=== PATIENT | female | born 1970 | race Two or more races ===

== ENCOUNTER 2017-07-13 09:06 | Emergency (ER) | payer MEDICARE, OTHER ==
[~2017-07-13] VITALS: Ht 160 cm; Wt 70.3 kg
[2017-07-13] MEDS ORDERED: Bactrim DS (160mg/800mg) tab ORAL ONE (09:45)
[2017-07-13 09:59] VITALS: BP 129/83
--- NOTE | 2017-07-13 10:51 | Emergency Room Report ---
History of Present Illness General Chief Complaint: Sore Throat Source: Patient Present Illness HPI Patient presents with significant other with sore throat and also R foot pain. Sore throat for few days. Minimal cough. Feverish, not documented. Pain with swallowing but able to drink fluids. No NVD. She's had a sore on her R lower leg and now has swelling of her foot and redness of the skin dorsally. She had bunion surgery many years ago. She states the wound on her lower tibial area is improving. No calf tenderness. No dysuria. States not . Allergies: Coded Allergies: ACETAMINOPHEN (Verified Allergy, Unknown, 07/13/17) Patient History Past Medical History: see triage record Social History: Reports: smoking Social History Narrative lives at hotel with sig other Last Menstrual Period: 07/02/17 Now: No Reviewed Nursing Documentation: PMH: Agreed, PSxH: Agreed Nursing Documentation-PMH Hx Hypertension: Yes Review of Systems All Other Systems: negative except mentioned in HPI Physical Exam Vital Signs Date Time Temp Pulse Resp B/P (MAP) Pulse Ox O2 Delivery O2 Flow Rate FiO2 07/13/17 09:27 98.8 82 18 129/83 97 Room Air Sp02 EP Interpretation: reviewed, normal General Appearance: well appearing, no apparent distress, GCS 15, other - sleepy Head: normocephalic Eyes: bilateral eye PERRL, bilateral eye Scleral Injection ENT: moist mucus membranes, pharyngeal erythema Neck: supple Respiratory: lungs clear, normal breath sounds Cardiovascular #1: regular rate, rhythm Cardiovascular #2: 2+ radial (R) Gastrointestinal: normal inspection, normal bowel sounds, non tender, no mass, non-distended Musculoskeletal: back normal, gait/station normal, normal range of motion, no calf tenderness, swelling - dorsum of R foot Neurologic: alert, oriented x3, grossly normal Psychiatric: other - sleepy Skin: warm/dry, other - erythema R dorsum of foot with old scar. Wound tibial area without erythema or drainage Medical Decision Making Diagnostic Impression: Primary Impression: Sore throat Additional Impression: Cellulitis Qualified Codes: L03.115 - Cellulitis of right lower limb ER Course Patient with sore throat and foot pain. Xray of foot indicated. Looks like cellulitis on foot. Throat not classic for strep. Will treat both with bactrim and bacitracin. Will give motrin. Xray with prior screw (patient did not know). No evidence of osteo. Improved with care. Patient stable for outpatient observation and treatment. (Sig other eloped.) Other X-Ray Diagnostic Results Other X-Ray Diagnostic Results : X-Ray ordered: R foot # of Views/Limited Vs Complete: 3 View Indication: Other EP Interpretation: Yes Interpretation: no dislocation, no soft tissue swelling, no fractures, other - screw Impression: Other Interpreting ER Provider: Electronically signed by Chao Diggs MD Last Vital Signs Date Time Temp Pulse Resp B/P (MAP) Pulse Ox O2 Delivery O2 Flow Rate FiO2 07/13/17 11:12 98.8 82 18 129/83 97 Room Air Scripts Ibuprofen* (MOTRIN*) 600 Mg Tablet 600 MG ORAL Q6H Y for For Pain, #20 TAB Prov: Chao Diggs M.D. 07/13/17 Bacitracin (Bacitracin) 28.4 Gm Oint...g. 1 APPLIC TOPIC BID, #20 GM Prov: Chao Diggs M.D. 07/13/17 Trimethoprim/Sulfamethoxazole 160/800* (BACTRIM DS TABLET*) 1 Each Tablet 1 TAB ORAL Q12H, #14 TAB 0 Refills Prov: Chao Diggs M.D. 07/13/17 Referrals: NOT CHOSEN [facility]/,REFERRING (PCP) Chao Diggs M.D. Jul 13, 2017 10:51
[2017-07-13] MEDS ORDERED: BACITRACIN15 GM TOPIC (10:56)
[2017-07-13] MEDS ORDERED: BACTRIM DS TAB1 EAC1 ORAL (10:56)
[2017-07-13] MEDS ORDERED: IBUPROFEN600 MG ORAL (10:56)
[2017-07-13] MEDS ORDERED: Bacitracin Oint UD TOPIC ONE (11:00)
[2017-07-13 11:12] VITALS: BP 129/83
--- NOTE | 2017-07-14 09:56 | Diagnostic Imaging Report ---
Indication: PAIN Technique: 3 views right foot Comparison: none Findings: There is evidence of prior first metatarsal osteotomy. There is hallux longus and minimal metatarsus adductus. There is medial subluxation of the fifth distal interphalangeal joint. There is slight medial deviation of the fourth distal phalanx as well. Erosions. No associated fracture. There is minimal dorsal soft tissue swelling Impression: Postsurgical changes, as described Medial subluxation of the fifth distal interphalangeal joint. Correlate with clinical findings as regards acuity No definite acute bony trauma otherwise. Minimal dorsal soft tissue swelling. Correlate with clinical findings This agrees with the preliminary interpretation provided overnight by [facility] teleradiology service.
== END 2017-07-13 11:12 | disposition home or self-care (01) ==
LOC: EMR 10:06
DX: J02.9 Acute pharyngitis, unspecified (principal); L03.115 Cellulitis of right lower limb; I10 Essential (primary) hypertension; Z88.6 Allergy status to analgesic agent
CPT/HCPCS: 99284